=== PATIENT | female | born 1965 | race Caucasian/White ===

== ENCOUNTER 2017-01-25 08:55 | Emergency (ER) | payer OTHER ==
[~2017-01-25 08:55] MED LIST: ATENOLOL25 PO; ATIVAN1 MG PO; CIPRO250 MG PO; COL100 PO; DILTIAZEM HCL120 M2 PO; DILTIAZEM30 MG PO; GLIPIZIDE10 MG PO; GLU10 PO; GLU850 PO; HUM7525 SQ; IBUPROFEN600 MG PO; LANTI SQ; LANTUS SOLOS100 U/M1 SQ; LEADER ASPIRIN81 MG PO; LEVAQUIN750 MG PO; METFORMIN ER500 M1 PO; METFORMIN500 MG PO; NEU300 PO; NIT0.4 SL; NITROSTAT0.4 MG SL; NOR10T PO; QVAR0.04 MG/Ac IH; SERTRALINE HYD100 MG PO; TRAZODONE HYDR150 MG PO; VAL5 PO; ZES5 PO; ZESTRIL5 MG PO; ZOF4 PO
[2017-01-25 10:07] LABS: BASOPHIL % 0.3 % (0-2); PLATELET COUNT 211 x10^3mcL (130-400)
[2017-01-25 10:10] LABS: RED CELL DISTRIBUTION WIDTH 14.7 % (11.5-14.5)
[2017-01-25 10:18] LABS: CALCIUM 9.7 mg/dL (8.5-10.1); CARBON DIOXIDE 31.5 mmol/L (21-32); CHLORIDE SERUM 93 mmol/L (98-107); CREATININE SERUM 0.8 mg/dL (0.6-1.0); GFR1 > 60 mL/min; GLUCOSE SERUM 443 mg/dL (74-106); POTASSIUM SERUM 4.7 mmol/L (3.5-5.1); SODIUM SERUM 132 mmol/L (136-145)
[2017-01-25 10:23] LABS: ALBUMIN 3.4 g/dL (3.4-5.0); ALKALINE PHOSPHATASE 113 U/L (46-116); ALT/SGPT 22 U/L (14-59); AST/SGOT 12 U/L (15-37); BILIRUBIN TOTAL 0.5 mg/dL (0.20-1.00)
[2017-01-25 10:25] LABS: TOTAL PROTEIN, SERUM 8.4 g/dL (6.4-8.2)
[2017-01-25 10:32] LABS: microscopic required? YES; urine erythrocyte TRACE (NEGATIVE)
[2017-01-25 12:39] VITALS: BP 146/88
== END 2017-01-25 12:39 | disposition home or self-care (01) ==
LOC: ED 08:55
PROVIDERS: Emergency Medicine
DX: N12 Tubulo-interstitial nephritis, not specified as acute or chronic (principal); E11.65 Type 2 diabetes mellitus with hyperglycemia; I10 Essential (primary) hypertension; K21.9 Gastro-esophageal reflux disease without esophagitis; Z79.4 Long term (current) use of insulin
CPT/HCPCS: J0696; J1815; J1885; J2405; J7030

== ENCOUNTER 2019-05-01 07:41 | Emergency (ER) | payer OTHER ==
[~2019-05-01] VITALS: Ht 162.6 cm; Wt 92.1 kg
[2019-05-01 07:48] VITALS: Ht 162.6 cm; Wt 92.1 kg
[2019-05-01 08:49] VITALS: BP 120/65
== END 2019-05-01 08:49 | disposition home or self-care (01) ==
LOC: ED 07:41
DX: S90.822A Blister (nonthermal), left foot, initial encounter (principal); A52.16 Charcot's arthropathy (tabetic); E11.9 Type 2 diabetes mellitus without complications; I10 Essential (primary) hypertension; Z90.710 Acquired absence of both cervix and uterus